=== PATIENT | female | born 1945 | race Caucasian/White ===

== ENCOUNTER 2021-11-23 15:48 | Emergency (ER) | payer MEDICARE, MEDICAID ==
[~2021-11-23] VITALS: Ht 160 cm; Wt 86.0 kg
[2021-11-23] MEDS ORDERED: morphine 4 MG/ML inj SYRINge IM ONE (18:25)
[2021-11-23 19:23] VITALS: BP 190/69
[2021-11-23 19:28] LABS: CLARITY,URINE CLEAR (Clear); COLOR,URINE YELLOW (Yellow); GLUCOSE, URINE NEGATIVE (Neg); KETONES,URINE NEGATIVE (Neg); LEUKOCYTE ESTERASE ,URINE NEGATIVE (Neg); NITRITES, URINE POSITIVE (Neg); OCCULT BLOOD,URINE SMALL (Neg); PH,URINE 5.5 (4.8-8.0); PROTEIN,URINE NEGATIVE (Neg); UA COLLECTION TYPE NON-SPECIFIED; UROBILINOGEN,URINE 0.2 E.U/dL (0.2-1.0)
--- NOTE | 2021-11-23 19:35 | NUR ---
Notified MD of BP of /. is checking on pt now. No new orders at this time.
[2021-11-23 19:42] LABS: BACTERIA,URINE 4+ /HPF (Neg); SQUAMOUS EPITHELIAL CELL,UR NONE SEEN /LPF (FEW)
[2021-11-23] MEDS ORDERED: LIDO700A32 TOP (19:47)
[2021-11-23] MEDS ORDERED: IBUP-1984 PO (19:47)
[2021-11-23] MEDS ORDERED: GABA-530 PO (19:47)
--- NOTE | 2021-11-26 14:41 | NUR ---
PT CALLED REGARDING VISIT ON 11/23/21. PT WAS NOTIFIED THAT LAB RESULTS SHOWED SHE HAS A UTI AND THAT AN RX WOULD BE ORDERED FOR HER. PT REQUESTED THAT RX BE CALLED INTO [facility] [place] K[facility] 500MG; 2 TABLES PO BID x7 DAYS WAS CALLED TO [facility] [place] PT REQUESTED.
== END 2021-11-23 20:39 | disposition home or self-care (01) ==
LOC: ER 15:48
DX: M54.32 Sciatica, left side (principal); R10.84 Generalized abdominal pain; I10 Essential (primary) hypertension; Z79.899 Other long term (current) drug therapy
CPT/HCPCS: 72192; 81001; 87077; 87088; 87186; 96372; 99284; J2270